=== PATIENT | female | born 1990 | race Caucasian/White ===

== ENCOUNTER 2017-07-16 08:16 | Emergency (ER) | payer OTHER ==
[2017-07-16 08:25] VITALS: BMI 31.1
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
[2017-07-16 09:37] LABS: BASOPHILS # (AUTO) 0.1 X10^3/uL (0.0-0.1); BASOPHILS % (AUTO) 1.3 % (0.2-1.0); EOSINOPHILS # (AUTO) 0.1 x10^3/uL (0.0-0.2); EOSINOPHILS % (AUTO) 2.9 % (0.9-2.9); HEMOGLOBIN 13.8 g/dL (12.0-16.0); LYMPHOCYTES % (AUTO) 40.2 % (21.0-51.0); MEAN CORPUSCULAR HEMOGLOBIN 30.5 pg (27.0-34.0); MEAN CORPUSCULAR HGB CONC 34.5 g/dL (33.0-35.0); MEAN CORPUSCULAR VOLUME 88.3 fL (80.0-100.0); MONOCYTES # (AUTO) 0.2 x10^3/uL (0.3-0.8); MONOCYTES % (AUTO) 4.9 % (0.0-13.0); NEUTROPHILS # (AUTO) 2.5 x10^3/uL (2.2-4.8); NEUTROPHILS % (AUTO) 50.7 % (42.0-75.0); PLATELET COUNT 152 X10^3/uL (150.0-450.0); RED BLOOD COUNT 4.53 X10^6/uL (3.5-5.4); RED CELL DISTRIBUTION WIDTH 12.5 % (11.6-16.5)
[2017-07-16 09:50] LABS: SERUM PREGNANCY TEST, QUAL POSITIVE >10 mIU/mL
[2017-07-16 10:06] LABS: ALANINE AMINOTRANSFERASE 87 Units/L (12-78); ALBUMIN 4.1 g/dL (3.4-5.0); ALKALINE PHOSPHATASE 35 Units/L (46-116); ASPARTATE AMINO TRANSFERASE 45 Units/L (15-37); BLOOD UREA NITROGEN 7 mg/dL (7-18); CALCIUM 9.5 mg/dL (8.5-10.1); CARBON DIOXIDE 27.2 mmol/L (21-32); CHLORIDE 102 mmol/L (98-107); CREATININE 0.73 mg/dL (0.55-1.02); SODIUM 139 mmol/L (136-145); TOTAL PROTEIN 7.6 g/dL (6.4-8.2); eGFR BLACK RACES > 60 (>60); eGFR NON BLACK RACES > 60 (>60)
[2017-07-16 10:21] LABS: HCG,QUANTITATIVE 68513 mIU/mL (0-6)
[2017-07-16 12:28] VITALS: BP 132/78
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
== END 2017-07-16 12:30 | disposition home or self-care (01) ==
LOC: ER 08:37
DX: S20.211A Contusion of right front wall of thorax, initial encounter (principal); S43.401A Unspecified sprain of right shoulder joint, initial encounter; S73.101A Unspecified sprain of right hip, initial encounter; R10.84 Generalized abdominal pain; Z3A.09 9 weeks gestation of pregnancy; Y33.XXXA Other specified events, undetermined intent, initial encounter; Y92.9 Unspecified place or not applicable
CPT/HCPCS: 36415; 76801; 80053; 84702; 84703; 85025; 99283; 99284